=== PATIENT | female | born 2000 | race Caucasian/White ===

== ENCOUNTER 2020-11-13 10:53 | Observation (INO) ==
[2020-11-13] MEDS ORDERED: 0.9 % SODIUM CHLORIDE 1,000 ML IV ONE (12:01)
[2020-11-13] MEDS ORDERED: LACTATED RINGERS 1,000 ML IV ONE ×2 (12:01→12:33)
[2020-11-13] MEDS ORDERED: ACETAMINOPHEN 1,000 MG/100 ML BAG IV ONE (12:18)
[2020-11-13] MEDS ORDERED: ONDANSETRON 4 MG/2 ML VIAL IV ONE ×2 (12:18→14:08)
--- NOTE | 2020-11-13 12:33 | Emergency Department Note ---
HPI General Chief complaint: Blood Sugar Problem Stated complaint: high blood sugar Time Seen by Provider: 11/13/20 12:00 Source: patient Mode of arrival: ambulatory Limitations: no limitations History of Present Illness HPI Narrative: 20-year-old lady who arrives emergency department accompanied by her brother and a friend complaining of diabetic ketoacidosis. The patient says she started having nausea and vomiting on Wednesday morning. She presented to [facility] and underwent initial testing. The staff there recommended she be admitted but she left AGAINST MEDICAL ADVICE. After re turning home her symptoms continue to worsen. She has been having pain in her chest and upper abdomen. She is also starting to feel short of breath. She had identical symptoms many times in the past due to diabetic ketoacidosis. She cannot think of why she might be in DKA. She has been taking her insulin as prescribed and is otherwise been in her usual state of health. Related Data Home Medications Medication Instructions Recorded Confirmed insulin glargine [Lantus U-100 26 unit SUBCUT HS 11/13/20 11/13/20 Insulin] levothyroxine 125 mcg PO QAM 11/13/20 11/13/20 venlafaxine 150 mg PO QAM 11/13/20 11/13/20 Previous Rx's Medication Instructions Recorded ondansetron HCl [Zofran] 4 mg PO Q6H PRN #20 tab 09/04/20 Allergies Allergy/AdvReac Type Severity Reaction Status Date / Time No Known Drug Allergies Allergy Verified 09/04/20 10:46 Review of Systems ROS ROS Narrative: Narrative: All systems ED: reviewed and negative except as stated. Constitutional: Denies fever and chills Respiratory: Denies cough Gastrointestinal: Denies diarrhea PFSH Narrative Patient History Narrative: Narrative: Medical/Surgical/Family History All Active Problems (Updated 11/13/20 @ 17:18 by Mayur Babcock DO) Hypothyroidism (Acute) Hypokalemia (Acute) DKA, type 1 (Acute) Gastroenteritis (Acute) Dehydration (Acute) Diabetes mellitus, insulin dependent (IDDM), controlled (Acute) Social History Smoking Status: Never smoker Alcohol Intake Frequency: does not drink Substance Use: does not use Exam Narrative Narrative: I reviewed the vital signs. Gen -patient is awake and alert and appears somewhat uncomfortable. The patient is well groomed. HEENT -head is atraumatic. There is no conjunctival pallor or scleral icterus. Mucous membranes are dry CV -S1-S2 regular rate and rhythm. Peripheral pulses are palpable. There is no JVD. Resp -breathing is slightly tachypneic but otherwise nonlabored. lungs are clear to auscultation bilaterally. There is no cyanosis. GI - Abdomen is soft and nontender to palpation. There is no guarding or rebound tenderness. Derm -skin is warm and diaphoretic. There is no visible rash. MSK -present extremities are atraumatic. Psych -patient has appropriate affect. The patient does not appear internally stimulated. Neuro -patient answers questions appropriately with fluent speech. Patient moves all present extremities equally. General Limitations: no limitations Course Vital Signs Vital signs: Vital Signs Temperature 98.1 F 11/13/20 10:54 Pulse Rate 87 11/13/20 10:54 Respiratory Rate 18 11/13/20 10:54 Blood Pressure 160/89 11/13/20 10:54 Pulse Oximetry (%) 100 11/13/20 10:54 Temperature 98.1 F 11/13/20 10:54 Pulse Rate 80 11/13/20 15:19 Respiratory Rate 18 11/13/20 10:54 Blood Pressure 99/59 11/13/20 15:19 Pulse Oximetry (%) 98 11/13/20 15:19 [facility] Narrative Medical decision making narrative: Patient presents with signs and symptoms consistent with diabetic ketoacidosis. She appears to be a very reliable historian and does not provide any symptoms suggestive of acute coronary syndrome sepsis or other precipitant of her DKA. Labs are remarkable for an anion gap metabolic acidosis with respiratory compensation and ketonuria. She was given IV fluids antiemetics analgesics and potassium and did have some improvement in her symptoms. I discussed the test results with the patient and she is agreeable with the plan for admission and insulin therapy. I discussed the patient's history examination and diagnostic findings with Dr. Aiken, who agrees with the plan of care and accepts admission. He would like to evaluate the patient in person before he decides if she would do well with subcutaneous insulin or if we should initiate an insulin drip Critical care time I provided 31 minutes of critical care time. This was in addition to any separately billable procedures. The patient was given IV fluids to treat her diabetic ketoacidosis. She was also given potassium to treat her relative hypokalemia in anticipation of significant electrolyte shifts with the initiation of insulin therapy. The patient was closely monitored for response to treatment and stability of vital signs throughout their emergency department stay. Lab Data Lab results reviewed: Yes I reviewed the patient's lab results. Result diagrams: 11/13/20 12:51 11/13/20 12:51 Labs: Lab Results 11/13/20 11/13/20 11/13/20 Range/Units 12:42 12:51 12:51 WBC 10.9 (4.5-11.0) K/mcL RBC 4.54 (4.00-5.20) M/mcL Hgb 13.4 (12.0-15.0) g/dL Hct 39.2 (36.0-48.0) % POC Hct 42 (36-48) % MCV 86.3 (80.0-100.0) fL MCH 29.5 (26.0-34.0) pg MCHC 34.2 (31.0-36.0) g/dL RDW 13.2 (11.5-14.5) % Plt Count 327 (140-440) K/mcL MPV 9.5 (7.4-10.4) fL Neut % (Auto) 92.9 H (38.0-78.0) % Lymph % (Auto) 5.2 L (15.0-49.0) % [place] % (Auto) 1.8 (1.0-12.0) % Eos % (Auto) 0 (0.0-7.0) % Baso % (Auto) 0.1 (0.0-2.0) % Lymph # (Auto) 0.57 L (1.50-4.80) K/mcL [place] # (Auto) 0.20 (0.10-0.90) K/mcL Eos # (Auto) 0 (0.00-0.70) K/mcL Baso # (Auto) 0.01 (0.00-0.20) K/mcL Absolute Neutrophils 10.11 H (1.80-8.00) K/mcL POC Sodium 135 (133-145) mEq/L POC Potassium 3.4 (3.3-5.1) mEql/L POC Chloride 99 (96-108) mEq/L POC Total CO2 16 L (22-30) mmol/L POC BUN 4 L (6-20) mg/dL POC Creatinine 0.4 L (0.6-1.2) mg/dL POC Glucose 357 H (70-105) mg/dL POC WB Ioniz Calcium 1.05 L (1.16-1.32) mmEq/L Urine Color Straw Urine Appearance Clear (Clear) Urine pH 7.0 (5.0-9.0) Ur Specific [place] 1.014 (1.000-1.035) Urine Protein Negative (Negative) mg/dL Urine Glucose (UA) >=500 A (Negative) mg/dL Urine Ketones 80 A (Negative) mg/dL Urine Occult Blood >=1.0 A (Negative) mg/dL Urine Nitrate Negative (Negative) Urine Bilirubin Negative (Negative) mg/dL Urine Urobilinogen Negative mg/dL Ur Leukocyte Esterase Negative (Negative) /ug Urine RBC 11 H (0-3) /hpf Urine WBC 1 (0-4) /hpf Ur Squamous Epith Cells < 1 (0-4) /hpf Urine Bacteria Few A (0) /hpf Ur Culture Indicated? Yes ED POC Tests ED POC Tests: ROBBIE - SARS Antigen Negative HCG POC Results Negative EKG Data EKG #1: EKG attestation: Yes I reviewed and interpreted this EKG. EKG results narrative: EKG performed at 12:14 PM: Sinus rhythm, rate 85. Normal P wave, QRS and T wave morphology. Grossly normal axis. Normal AL, QRS, and QTc duration. No ST segment deviation. No old EKG immediately available for comparison. EKG was interpreted by me. Discharge Plan Patient/Caregiver Discharge Instructions Pt seen by CORRECTION OFFICER/PA only: No Clinical Impression: DKA, type 1 Patient Disposition: Xfer As Inpt ([facility]) Condition: Fair Discharge Date/Time: 11/13/20 16:50
--- NOTE | 2020-11-13 12:50 | EKG ---
[facility] Test Date: 2020-11-13 Pat Name: Teresa Shah Department: ED Room: Gender: Female Candy Dipper: BARB : 2000 Requested By: Mayur Babcock Order Number: [id number] Reading MD: Parvez Barron M.D. Measurements Intervals [place] Rate: 85 P: 0 LA: 162 QRS: 49 QRSD: 70 T: 3 QT: 400 QTc: 476 Interpretive Statements SINUS RHYTHM BORDERLINE PROLONGED QT INTERVAL NO PRIOR TRACING FOR COMPARISON BORDERLINE TRACING Electronically Signed On 11-13-2020 12:50:46 PDT by Parvez Barron M.D. /store/M0/[id number]
[2020-11-13] MEDS ORDERED: PROCHLORPERAZINE 10 MG/2 ML VIAL IV ONE (12:58)
[2020-11-13 13:04] LABS: POC Blood Urea Nitrogen 4 mg/dL (6-20); POC CO2 16 mmol/L (22-30); POC Calcium, Ionized 1.05 mmEq/L (1.16-1.32); POC Chloride 99 mEq/L (96-108); POC Creatinine 0.4 mg/dL (0.6-1.2); POC Glucose, Random 357 mg/dL (70-105); POC Hematocrit 42 % (36-48); POC Potassium 3.4 mEql/L (3.3-5.1); POC Sodium 135 mEq/L (133-145)
[2020-11-13] MEDS ORDERED: POTASSIUM CHLORIDE 40 MEQ in DEXTROSE 5% IN WATER 500 ML IV ONE (13:08)
[2020-11-13] MEDS ORDERED: POTASSIUM CHLORIDE 20 MEQ/10 ML VIAL IV ONE (13:26)
[2020-11-13 13:28] LABS: Basophils # (Auto) 0.01 K/mcL (0.00-0.20); Basophils % (Auto) 0.1 % (0.0-2.0); Eosinophils # (Auto) 0 K/mcL (0.00-0.70); Eosinophils % (Auto) 0 % (0.0-7.0); Hematocrit 39.2 % (36.0-48.0); Hemoglobin 13.4 g/dL (12.0-15.0); Lymphocytes # (Auto) 0.57 K/mcL (1.50-4.80); Lymphocytes % (Auto) 5.2 % (15.0-49.0); Mean Cell Volume 86.3 fL (80.0-100.0); Mean Corpuscular HGB Conc 34.2 g/dL (31.0-36.0); Mean Platelet Volume 9.5 fL (7.4-10.4); Monocytes % (Auto) 1.8 % (1.0-12.0); Neutrophils % (Auto) 92.9 % (38.0-78.0); Platelet Count 327 K/mcL (140-440); RBC 4.54 M/mcL (4.00-5.20); Red Cell Distribution Width 13.2 % (11.5-14.5); WBC 10.9 K/mcL (4.5-11.0)
[2020-11-13 13:36] LABS: Appearance,Urine CLEAR (Clear); Bacteria,Urine FEW /hpf (0); Bilirubin,Urine Negative (Negative); Color,Urine STRAW; Culture Indicated,Urine Yes; Glucose,Urine (UA) >=500 mg/dL (Negative); Ketones,Urine 80 mg/dL (Negative); Leukocyte Esterase,Urine Negative /ug (Negative); Nitrate,Urine Negative (Negative); Protein,Urine Negative (Negative); Specific Gravity,Urine 1.014 (1.000-1.035); Urine Blood >=1.0 mg/dL (Negative); Urine RBC 11 /hpf (0-3); Urine Squamous Epithelial Cell < 1 /hpf (0-4); Urine WBC 1 /hpf (0-4); Urobilinogen,Urine Negative
[2020-11-13] MEDS ORDERED: POTASSIUM CHLORIDE 20 MEQ in 0.45 % SODIUM CHLORIDE 1,000 ML IV SCH ×2 (16:15→17:15)
[2020-11-13] MEDS ORDERED: DEXTROSE 5%-1/2NS W/20MEQ KCL 1,000 ML IV SCH ×2 (16:15→17:15)
--- NOTE | 2020-11-13 16:23 | Internal Med History&Physical ---
HPI History of Present Illness Patient information: Note initiated : 11/13/20 at 4:15 pm Service Date, if different from initiated Date: [] Patient: Teresa Shah a 20 y/o F admitted on for high blood sugar. Chief Complaint: [DKA] History of present illness: Ms. Shah is a 20 year old F history of type 1 diabetes mellitus and hypothyroidism presenting with 3-day history of nausea vomiting decreased appetite and epigastric abdominal pain. Last prior similar episode were 3 months ago associated with DKA and also end up being hospitalized. She was in her usual state of health until the last Wednesday when she developed sudden onset of nausea vomiting decreased appetite and epigastric abdominal pain. She states that she is good about taking her insulin which are Lantus 27 units q. morning and sliding scale mealtime insulin. She presented to [facility] ED for her symptoms on Wednesday but she wanted to go home instead of being hospitalized. Today she came to our ED because of worsening of her symptoms. Vital signs at ER presentation were within normal limits. Labs were significant for hyperglycemia with blood glucose 357, bicarb of 16, and elevated anion gap to 20s. UA positive for urine ketones. Potassium slightly l ow at 3.4. Constitutional Constitutional: Present weakness; Absent chills, excessive sweating, fatigue and fever(s) EENT Eyes: Absent blurry vision, change in vision, loss of vision and other visual disturbances Ears: Absent decreased hearing and tinnitus Nose, mouth and throat: Absent abnormal hearing, dry mouth, headache(s), nasal congestion and sore throat Cardiovascular Cardiovascular: Absent chest pain, chest pain at rest, edema, irregular heart rhythm and palpatations Respiratory Respiratory: Absent cough, dyspnea and wheezing Gastrointestinal Gastrointestinal: Present abdominal pain, nausea and vomiting; Absent constipation and diarrhea Musculoskeletal Musculoskeletal: Absent back pain, deformity, limited range of motion, muscle cramps, muscle weakness and numbness Integumentary Integumentary: Absent lesions, rash and wounds Neurological Neurological: Absent focal weakness, headache(s) and numbness Psychiatric Psychiatric: Absent anxiety, depression and hallucinations PFSH PFSH All Active Problems (Updated 11/13/20 @ 16:21 by Lai Aiken MD) Hypothyroidism (Acute) Hypokalemia (Acute) DKA, type 1 (Acute) Gastroenteritis (Acute) Dehydration (Acute) Diabetes mellitus, insulin dependent (IDDM), controlled (Acute) Social History alcohol intake frequency: does not drink substance use type: does not use MEDS/ALLERGIES Home Medications and Allergies Home Medications Medication Instructions Recorded Confirmed Type ondansetron HCl [Zofran] 4 mg PO Q6H PRN #20 tab 09/04/20 11/13/20 Rx insulin glargine [Lantus U-100 26 unit SUBCUT HS 11/13/20 11/13/20 History Insulin] levothyroxine 125 mcg PO QAM 11/13/20 11/13/20 History venlafaxine 150 mg PO QAM 11/13/20 11/13/20 History Allergies Allergy/AdvReac Type Severity Reaction Status Date / Time No Known Drug Allergies Allergy Verified 09/04/20 10:46 EXAM Constitutional Vitals: Temp Pulse Resp BP Pulse Ox 36.7 C 80 18 99/59 98 11/13/20 10:54 11/13/20 15:19 11/13/20 10:54 11/13/20 15:19 11/13/20 15:19 General appearance: cooperative and no acute distress Head Head exam: Present atraumatic and normocephalic Eye Eye exam: Present EOMI and PERRL ENT ENT exam: Present mucous membranes moist, normal exam and normal external ear exam Neck Neck exam: Present normal inspection; Absent lymphadenopathy, tenderness and thyromegaly Respiratory Respiratory exam: Absent accessory muscle use, respiratory distress and wheezes Cardiovascular Cardiovascular exam: Present normal rate and rhythm; Absent JVD GI/Abdominal GI/Abdominal exam: Present normal bowel sounds, soft and tenderness; Absent organomegaly Extremities Exam Extremities exam: Present full ROM, normal capillary refill and normal inspection; Absent tenderness Neurological Exam Neurological exam: Present alert, CN II-XII intact and oriented X3; Absent motor sensory deficit Psychiatric Psychiatric exam: Present normal affect and normal mood; Absent anxious and depressed Skin Skin exam: Present dry and intact DATA Data Completed and Pending Labs: Labs from last 24 hours 11/13/20 11/13/20 11/13/20 12:51 12:51 12:42 WBC 10.9 RBC 4.54 Hgb 13.4 Hct 39.2 POC Hct 42 MCV 86.3 MCH 29.5 MCHC 34.2 RDW 13.2 Plt Count 327 MPV 9.5 Neut % (Auto) 92.9 H Lymph % (Auto) 5.2 L [place] % (Auto) 1.8 Eos % (Auto) 0 Baso % (Auto) 0.1 Lymph # (Auto) 0.57 L [place] # (Auto) 0.20 Eos # (Auto) 0 Baso # (Auto) 0.01 Absolute Neutrophils 10.11 H POC Sodium 135 POC Potassium 3.4 POC Chloride 99 POC Total CO2 16 L POC BUN 4 L POC Creatinine 0.4 L POC Glucose 357 H POC WB Ioniz Calcium 1.05 L Urine Color Straw Urine Appearance Clear Urine pH 7.0 Ur Specific [place] 1.014 Urine Protein Negative Urine Glucose (UA) >=500 A Urine Ketones 80 A Urine Occult Blood >=1.0 A Urine Nitrate Negative Urine Bilirubin Negative Urine Urobilinogen Negative Ur Leukocyte Esterase Negative Urine RBC 11 H Urine WBC 1 Ur Squamous Epith Cells < 1 Urine Bacteria Few A Ur Culture Indicated? Yes A/P Assessment and plan (1) DKA, type 1: Status: Acute (2) Hypokalemia: Status: Acute (3) Hypothyroidism: Status: Acute Narrative A/P Narrative: Assessment and Plans: 1. DKA type 1: Admit to observation PCU with telemetry HgA1c NPO s/p 2L IV fluid bolus given in the ED, to be followed by: 1/2NS w/ KCl 20mEq @250cc/hr when anion gap is elevated>14 and blood glucose>=200 D5 1/2NS w/ KCl 20mEq @250cc/hr when anion gap is elevated>14 and blood glucose<200 Regular insulin once time dose to be given in the ED, to be followed by insulin drip as per DKA protocol rate Accu Chek q1hr BMP q6hr ABG once When anion gap has been closed (<=14), will transition to subcutaneous insulin. Need 2 hour of gap between insulin drip and SQ before switching off the drip. When drip is off, can feed patient with diabetic food, d/c q6hr BMP, Accu Chek can be AC HS, and will also provide correctional scale insulin AC nurse educator referral 2. Hypokalemia: KCl 40mEq once to be given in the ED 1/2NS w/ KCl 20mEq @250cc/hr when anion gap is elevated>14 and blood gl ucose>=200 D5 1/2NS w/ KCl 20mEq @250cc/hr when anion gap is elevated>14 and blood glucose<200 BMP q6hr to trend serum Also check serum Mg level and replace as indicated 3. Hypothyroidism: Patient did miss about one month worth of drug due to running out TSH Synthroid 112mcg PO aAM GI ppx: not currently indicated DVT ppx: Lovenox Code status: Full Prognosis: guarded Disposition: observation PCU Critical Care Time: 45min Time Spent With Patient Time: Total time spent is greater than 50% in coordination of care (as documented) at patient's floor/unit and/or counseling patient: Total time spent with greater than 50% in coordination of care (as documented) at patient's floor/unit and/or counseling patient:: Greater than 35 minutes
[2020-11-13] MEDS ORDERED: SENNOSIDES 1 TABLET PO PRN (16:58)
[2020-11-13] MEDS ORDERED: ONDANSETRON 4 MG/2 ML VIAL IV PRN (16:58)
[2020-11-13] MEDS ORDERED: LACTULOSE 20 GM/30 ML ORAL.SOL PO PRN (16:58)
[2020-11-13] MEDS ORDERED: ACETAMINOPHEN 325 MG TABLET PO PRN (16:58)
[2020-11-13] MEDS ORDERED: PROCHLORPERAZINE 10 MG/2 ML VIAL IV PRN (17:28)
[2020-11-13 17:39] LABS: ALT/SGPT 9 U/L (<40); AST/SGOT 15 U/L (<32); Albumin 4.2 gm/dL (3.2-5.2); Albumin/Globulin Ratio 1.3 (1.0-2.3); Alkaline Phosphatase 83 U/L (39-117); Bilirubin,Direct < 0.2 mg/dL (0-0.3); Bilirubin,Total 0.6 mg/dL (0.1-1.0); Blood Urea Nitrogen 5 mg/dL (6-20); Calcium 8.2 mg/dL (8.6-10.4); Carbon Dioxide 15 mmol/L (22-30); Chloride 97 mmol/L (96-108); Globulin 3.2 gm/dL (2.2-3.7); Glomerular Filtration Rate 129; Glucose 353 mg/dL (70-105); Lactate Dehydrogenase 160 U/L (135-225); Phosphorous 1.6 mg/dL (2.5-4.5); Thyroid Stimulating Hormone 90.57 uIU/mL (0.27-5.01); Triglycerides 46 mg/dL (<150); Uric Acid 4.2 mg/dL (2.5-8.0)
[2020-11-13 17:52] LABS: Estimated Average Glucose(eAG) 206 mg/dL; Hemoglobin A1C 8.8 % Hgb (4.0-6.0)
[2020-11-13] MEDS ORDERED: INSULIN REGULAR, HUMAN 50 UNIT in 0.9 % SODIUM CHLORIDE 99.5 ML IV SCH (18:00)
[2020-11-13] MEDS ORDERED: 0.9 % SODIUM CHLORIDE 250 ML IV SCH (18:00)
[2020-11-13] MEDS ORDERED: MAGNESIUM SULFATE 8.12 MEQ/2 ML VIAL IV ONE (19:09)
[2020-11-13] MEDS ORDERED: LORazepam 2 MG/ML VIAL IV PRN (19:09)
[2020-11-13] MEDS ORDERED: LORazepam 2 MG/ML VIAL ONE (19:14)
--- NOTE | 2020-11-13 19:32 | Discharge Summary ---
Discharge Provider Provider Patient information: Note initiated : 11/13/20 at 7:30 pm Service Date, if different from initiated Date: [] Patient: Teresa Shah 20 y/o F admitted on 11/13/20 for high blood sugar. Chief Complaint: [DKA] Date of admission: 11/13/20 16:55 Discharge date: 11/13/20 Primary care physician: PCP No Consults: 11/13/20 Consult to Physician [CONS] Stat Comment: Consulting Provider: Lai Aiken Reason For Exam: Physician to Consult Discharge Meds Discharge Medications Home Medications ondansetron HCl [Zofran] 4 mg PO Q6H PRN #20 tab 09/04/20 [Rx Confirmed 11/13/20 Last Taken 10/13/20] Lantus U-100 Insulin 26 unit SUBCUT HS 11/13/20 [History Confirmed 11/13/20 Last Taken 11/12/20 22:00] insulin lispro [Humalog U-100 Insulin] See Rx Instructions .ROUTE .COMPLEX 11/13/20 [History Confirmed 11/13/20 Last Taken 11/12/20 18:00] insulin lispro [Humalog U-100 Insulin] See Rx Instructions .ROUTE .COMPLEX 11/13/20 [History Confirmed 11/13/20 Last Taken 11/12/20 22:00] levothyroxine 125 mcg PO QAM 11/13/20 [History Confirmed 11/13/20 Last Taken 10/13/20] venlafaxine 150 mg PO QAM 11/13/20 [History Confirmed 11/13/20 Last Taken 11/12/20 0900] COURSE Hospital Course Hospital course: Patient was admitted on November 13, 2020 for DKA type I. Patient was started on IV fluid boluses followed by continuous infusion, as well as insulin drip. Patient decided to leave AMA hours after she being admitted to the PCU. Discharge diagnosis: DKA Time Spent with Patient Time attestation: Total time spent providing and/or coordinating discharge services: Patient was admitted on November 13, 2020 for DKA type I. Patient was started on IV fluid boluses followed by continuous infusion, as well as insulin drip. Patient decided to leave AMA hours after she being admitted to the PCU. EXAM Constitutional Vitals: Temp Pulse Resp BP Pulse Ox 36.7 C 82 18 114/83 99 11/13/20 10:54 11/13/20 16:46 11/13/20 10:54 11/13/20 18:01 11/13/20 18:01 General appearance: severe distress Head Head exam: Present atraumatic and normocephalic Eye Eye exam: Present EOMI and PERRL ENT ENT exam: Present mucous membranes moist, normal exam and normal external ear exam Neck Neck exam: Present normal inspection; Absent lymphadenopathy, tenderness and thyromegaly Respiratory Respiratory exam: Absent accessory muscle use, respiratory distress and wheezes Cardiovascular Cardiovascular exam: Present tachycardia; Absent JVD GI/Abdominal GI/Abdominal exam: Present normal bowel sounds and soft; Absent organomegaly and tenderness Extremities Exam Extremities exam: Present full ROM, normal capillary refill and normal inspection; Absent tenderness Neurological Exam Neurological exam: Present alert, CN II-XII intact and oriented X3; Absent motor sensory deficit Psychiatric Psychiatric exam: Present normal affect and normal mood; Absent anxious and depressed Skin Skin exam: Present dry and intact Discharge Data Data Completed and Pending Labs on day of discharge: Labs from last 24 hours 11/13/20 11/13/20 11/13/20 12:51 12:51 12:51 WBC 10.9 RBC 4.54 Hgb 13.4 Hct 39.2 POC Hct 42 MCV 86.3 MCH 29.5 MCHC 34.2 RDW 13.2 Plt Count 327 MPV 9.5 Neut % (Auto) 92.9 H Lymph % (Auto) 5.2 L [place] % (Auto) 1.8 Eos % (Auto) 0 Baso % (Auto) 0.1 Lymph # (Auto) 0.57 L [place] # (Auto) 0.20 Eos # (Auto) 0 Baso # (Auto) 0.01 Absolute Neutrophils 10.11 H POC Sodium 135 Sodium 134 POC Potassium 3.4 Potassium 3.5 POC Chloride 99 Chloride 97 Carbon Dioxide 15 L POC Total CO2 16 L Anion Gap 22.0 H POC BUN 4 L BUN 5 L Creatinine 0.6 POC Creatinine 0.4 L GFR Calculation 129 Glucose 353 H POC Glucose 357 H Hemoglobin A1c 8.8 H Estim Average Glucose 206 Uric Acid 4.2 Calcium 8.2 L POC WB Ioniz Calcium 1.05 L Phosphorus 1.6 L Magnesium 1.5 L Total Bilirubin 0.6 Direct Bilirubin < 0.2 GGT 13 AST 15 ALT 9 Alkaline Phosphatase 83 Lactate Dehydrogenase 160 Total Protein 7.4 Albumin 4.2 Globulin 3.2 Albumin/Globulin Ratio 1.3 Triglycerides 46 TSH 90.57 H Urine Color Urine Appearance Urine pH Ur Specific [place] Urine Protein Urine Glucose (UA) Urine Ketones Urine Occult Blood Urine Nitrate Urine Bilirubin Urine Urobilinogen Ur Leukocyte Esterase Urine RBC Urine WBC Ur Squamous Epith Cells Urine Bacteria Ur Culture Indicated? 11/13/20 12:42 WBC RBC Hgb Hct POC Hct MCV MCH MCHC RDW Plt Count MPV Neut % (Auto) Lymph % (Auto) [place] % (Auto) Eos % (Auto) Baso % (Auto) Lymph # (Auto) [place] # (Auto) Eos # (Auto) Baso # (Auto) Absolute Neutrophils POC Sodium Sodium POC Potassium Potassium POC Chloride Chloride Carbon Dioxide POC Total CO2 Anion Gap POC BUN BUN Creatinine POC Creatinine GFR Calculation Glucose POC Glucose Hemoglobin A1c Estim Average Glucose Uric Acid Calcium POC WB Ioniz Calcium Phosphorus Magnesium Total Bilirubin Direct Bilirubin GGT AST ALT Alkaline Phosphatase Lactate Dehydrogenase Total Protein Albumin Globulin Albumin/Globulin Ratio Triglycerides TSH Urine Color Straw Urine Appearance Clear Urine pH 7.0 Ur Specific [place] 1.014 Urine Protein Negative Urine Glucose (UA) >=500 A Urine Ketones 80 A Urine Occult Blood >=1.0 A Urine Nitrate Negative Urine Bilirubin Negative Urine Urobilinogen Negative Ur Leukocyte Esterase Negative Urine RBC 11 H Urine WBC 1 Ur Squamous Epith Cells < 1 Urine Bacteria Few A Ur Culture Indicated? Yes Discharge Plan Patient/Caregiver Discharge Instructions Activity: other Diet: Consistent Carbohydrate Prescriptions: Continued ondansetron HCl [Zofran] 4 mg tablet 4 mg PO Q6H PRN (Reason: nausea and vomiting) Qty: 20 RF: 0 Lantus U-100 Insulin 100 unit/mL solution 26 unit SUBCUT HS RF: 0 levothyroxine 125 mcg tablet 125 mcg PO QAM RF: 0 venlafaxine 150 mg capsule,extended release 24hr 150 mg PO QAM RF: 0 insulin lispro [Humalog U-100 Insulin] 100 unit/mL Solution See Rx Instructions .ROUTE .COMPLEX RF: 0 insulin lispro [Humalog U-100 Insulin] 100 unit/mL Solution See Rx Instructions .ROUTE .COMPLEX RF: 0 Follow Up Plan Patient Disposition: Left Against Medical Advice Prognosis: Fair Rehab Potential: Critical I certify that the patient requires SNF services: No Overall status at discharge: patient is not back to baseline Discharge Orders: Discharge Order (Routine); Ordered 11/13/20 Ordered By: Lai VELÁSQUEZ VTE Deep Vein Thrombosis/Pulmonary Embolism Present on Admission: No
[2020-11-13] MEDS ORDERED: DOCUSATE SODIUM 100 MG CAPSULE PO SCH (21:00)
[2020-11-13] MEDS ORDERED: 0.9 % SODIUM CHLORIDE 10 ML SYRINGE IV SCH (22:00)
[2020-11-14] MEDS ORDERED: LEVOTHYROXINE SODIUM 112 MCG TABLET PO SCH (07:30)
[2020-11-14] MEDS ORDERED: ENOXAPARIN 40 MG/0.4 ML SYRINGE SQ SCH (09:00)
[2020-11-14] MEDS ORDERED: VENLAFAXINE 150 MG CAP.XL.24H PO SCH ×2 (09:00)
== END 2020-11-13 19:42 | disposition left against medical advice (07) ==
LOC: ED 10:53 → ICU 10:53
PROVIDERS: ADMIT Internal Medicine; ATTEND Internal Medicine